=== PATIENT | male | born 1970 | race African-American/Black ===

== ENCOUNTER 2021-09-25 12:48 | Inpatient (IN) | payer MEDICAID ==
[~2021-09-25] VITALS: Ht 175.3 cm; Wt 88.5 kg
[2021-09-25] MEDS ORDERED: NITROGLYCERIN 0.4MG TABLET SL SL PRN (13:15)
[2021-09-25] MEDS ORDERED: ASPIRIN 81MG TABLET PO ONE (13:15)
[2021-09-25] MEDS ORDERED: MORPHINE SULFATE 4 MG/ML CPJ (NOT FOR IM USE) IV ONE (14:00)
[2021-09-25 14:56] LABS: HEMATOCRIT. 49.5 % (42.0-52.0); HEMOGLOBIN. 16.5 g/dL (14.0-18.0); MEAN CORPUSCULAR HEMOGLOBIN 28.1 pg (28.0-32.0); PLATELET 203 x1000/uL (130-400); RED BLOOD CELL COUNT 5.89 mill/uL (4.7-6.1); RED CELL DISTRIBUTION WIDTH 14.2 % (11.6-14.6)
[2021-09-25 15:04] LABS: CHLORIDE 106 mEq/L (98-107)
[2021-09-25] MEDS ORDERED: DOXYCYCLINE HYCLATE 100MG CAPSULE PO NR (16:15)
[2021-09-25] MEDS ORDERED: CEFTRIAXONE 1 G PREMIX 50 ML IV SCH ×2 (16:15→18:45)
[2021-09-25] MEDS ORDERED: SODIUM CHLORIDE 0.9% 1,000 ML IV ONE (16:15)
[2021-09-25] MEDS ORDERED: SODIUM CHLORIDE 0.9% 1,000 ML IV NR (17:00)
[2021-09-25 17:01] LABS: PLATELET ESTIMATE NORMAL
[2021-09-25] MEDS ORDERED: CLONIDINE 0.1MG TABLET PO PRN (18:45)
[2021-09-25] MEDS ORDERED: ONDANSETRON HCL 4MG/2ML INJ IV PRN (18:45)
[2021-09-25] MEDS: ACETAMINOPHEN 325MG TABLET PO PRN (19:48)
[2021-09-25] MEDS: ENOXAPARIN 40MG/0.4ML SYR SUBCUT SCH (20:00)
[2021-09-25] MEDS ORDERED: AZITHROMYCIN 500MG/250ML 250 ML IV NR (20:00)
[2021-09-26] MEDS: ACETAMINOPHEN 325MG TABLET PO PRN (00:33)
[2021-09-26 01:52] VITALS: BP 131/76
[2021-09-26 04:07] VITALS: BP 136/69
[2021-09-26] MEDS ORDERED: ASPI-1497 PO (06:06)
[2021-09-26 08:00] VITALS: BP 134/84
[2021-09-26 12:00] VITALS: BP 126/91
[2021-09-26 12:19] LABS: *AMPHETAMINES SCREEN URINE NEGATIVE (NEGATIVE)
[2021-09-26 12:20] LABS: *BARBITURATES SCREEN URINE NEGATIVE (NEGATIVE); *BENZODIAZEPINES SCREEN URINE NEGATIVE (NEGATIVE); *COCAINE SCREEN URINE PRESUMTIVE POSITIVE (NEGATIVE); METHADONE URINE SCREEN NEGATIVE (NEGATIVE); OPIATES URINE SCREEN PRESUMTIVE POSITIVE (NEGATIVE); PHENCYCLIDINE URINE SCREEN NEGATIVE (NEGATIVE)
[2021-09-26 12:21] LABS: CANNABINOID URINE SCREEN PRESUMTIVE POSITIVE (NEGATIVE)
[2021-09-26 16:00] VITALS: BP 147/90
[2021-09-26] MEDS: CEFTRIAXONE 1,000 MG in DEXTROSE 5% WATER 50 ML IV SCH (17:06)
[2021-09-26] MEDS: ENOXAPARIN 40MG/0.4ML SYR SUBCUT SCH (19:32)
[2021-09-26 20:00] VITALS: BP 142/89
[2021-09-26 20:08] LABS: BASOPHILS % 0.6 % (0.0-2.0); EOSINOPHILS % 0.2 % (0.0-5.0); HEMATOCRIT. 49.1 % (42.0-52.0); HEMOGLOBIN. 16.1 g/dL (14.0-18.0); LYMPHOCYTES % 31.7 % (20.0-50.0); MEAN CORPUSCULAR HEMOGLOBIN 27.4 pg (28.0-32.0); MEAN CORPUSCULAR VOLUME 83.3 fL (80.0-94.0); MEAN PLATELET VOLUME 8.2 fl (7.4-10.4); NEUTROPHILS % 58.5 % (40.0-76.0); PLATELET 177 x1000/uL (130-400); RED CELL DISTRIBUTION WIDTH 14.2 % (11.6-14.6)
[2021-09-26 20:31] LABS: CHLORIDE 108 mEq/L (98-107)
[2021-09-26] MEDS ORDERED: AZITHROMYCIN 500 MG in DEXT 5% WATER 250 ML IV SCH (21:00)
[2021-09-27] VITALS: BP 130/91
[2021-09-27 04:00] VITALS: BP 120/88
[2021-09-27 08:00] VITALS: BP 124/94
[2021-09-27] MEDS: AZITHROMYCIN 500 MG in DEXT 5% WATER 250 ML IV SCH (13:01)
[2021-09-27] MEDS: ACETAMINOPHEN 325MG TABLET PO PRN ×2 (13:09→20:06)
[2021-09-27 16:00] VITALS: BP 138/92
[2021-09-27] MEDS: CEFTRIAXONE 1,000 MG in DEXTROSE 5% WATER 50 ML IV SCH (17:00)
[2021-09-27] MEDS: ENOXAPARIN 40MG/0.4ML SYR SUBCUT SCH (20:08)
[2021-09-27 20:33] VITALS: BP 130/82
[2021-09-28] VITALS: BP 140/81
[2021-09-28 04:00] VITALS: BP 135/93
[2021-09-28] MEDS: ACETAMINOPHEN 325MG TABLET PO PRN ×4 (05:58→23:24)
[2021-09-28 08:00] VITALS: BP 131/80
[2021-09-28 12:00] VITALS: BP 129/85
[2021-09-28] MEDS: AZITHROMYCIN 500 MG in DEXT 5% WATER 250 ML IV SCH (15:17)
[2021-09-28 16:00] VITALS: BP 135/90
[2021-09-28] MEDS: CEFTRIAXONE 1,000 MG in DEXTROSE 5% WATER 50 ML IV SCH (17:48)
[2021-09-28 20:00] VITALS: BP 128/85
[2021-09-28] MEDS: ENOXAPARIN 40MG/0.4ML SYR SUBCUT SCH (20:40)
[2021-09-28] MEDS: DIPHENHYDRAMINE 50MG/ML VIAL IV PRN (20:40)
[2021-09-29] VITALS: BP 130/94
[2021-09-29 04:00] VITALS: BP 135/97
[2021-09-29 08:00] VITALS: BP 145/82
[2021-09-29 12:00] VITALS: BP 118/79
[2021-09-29] MEDS ORDERED: AZITHROMYCIN 500 MG TABLET PO SCH (14:00)
[2021-09-29 16:00] VITALS: BP 131/80
[2021-09-29] MEDS: CEFTRIAXONE 1,000 MG in DEXTROSE 5% WATER 50 ML IV SCH (17:33)
[2021-09-29] MEDS: ACETAMINOPHEN 325MG TABLET PO PRN (18:35)
[2021-09-29 20:00] VITALS: BP 125/85
[2021-09-29] MEDS: ENOXAPARIN 40MG/0.4ML SYR SUBCUT SCH (20:21)
[2021-09-29] MEDS: DIPHENHYDRAMINE 50MG/ML VIAL IV PRN (20:21)
[2021-09-30 04:00] VITALS: BP 137/87
[2021-09-30 08:00] VITALS: BP 143/107
[2021-09-30] MEDS: ACETAMINOPHEN 325MG TABLET PO PRN (08:41)
[2021-09-30 12:00] VITALS: BP 129/93
[2021-09-30 15:39] VITALS: BP 124/93
[2021-09-30 16:00] VITALS: BP 113/89
== END 2021-09-30 17:10 | disposition home or self-care (01) | DRG 720 ==
LOC: ER 13:00 → 7WST 17:47 → EDBEDREQ 17:57 → ENRESERV 09-26 00:19 → 7WST 09-27 09:41
PROVIDERS: ADMIT Internal Medicine; ATTEND Internal Medicine
DX: A41.9 Sepsis, unspecified organism (principal); J12.82 Pneumonia due to coronavirus disease 2019; U07.1 COVID-19; R65.20 Severe sepsis without septic shock; F12.90 Cannabis use, unspecified, uncomplicated; F14.90 Cocaine use, unspecified, uncomplicated; I10 Essential (primary) hypertension; I25.2 Old myocardial infarction; J45.20 Mild intermittent asthma, uncomplicated; Z59.00 Homelessness unspecified; Z82.49 Family history of ischemic heart disease and other diseases of the circulatory system
CPT/HCPCS: 36415; 71045; 80053; 80305; 82728; 83605; 83880; 84145; 84443; 84484; 85025; 93005; 93970; 99291; J0456; J0696; J1200; J1650; J2270; J7060; U0003; U0005